=== PATIENT | female | born 1970 | race Caucasian/White ===

== ENCOUNTER 2017-10-14 14:08 | Emergency (ER) | payer OTHER ==
[~2017-10-14] VITALS: Ht 160 cm; Wt 68.0 kg
[2017-10-14] MEDS ORDERED: AMOXICILLIN500 MG PO (16:01)
== END 2017-10-14 16:10 | disposition home or self-care (01) ==
LOC: ED 14:08
DX: K04.7 Periapical abscess without sinus (principal); F32.9 Major depressive disorder, single episode, unspecified; F17.200 Nicotine dependence, unspecified, uncomplicated; Z88.5 Allergy status to narcotic agent
CPT/HCPCS: 99283